=== PATIENT | male | born 1995 | race Caucasian/White ===

== ENCOUNTER 2022-09-15 21:22 | Emergency (ER) | payer BC ==
[2022-09-15 21:29] VITALS: BP 110/71; PULSE 78; RESP 16; TEMP 98; BMI 24.3
[2022-09-15] MEDS ORDERED: ACETAMINOPHEN 500 MG TABLET (FP) PO ONE (22:52)
[2022-09-15] MEDS ORDERED: ACETAMINOPHEN 325 MG TABLET (FP) ONE (23:09)
== END 2022-09-16 01:22 | disposition home or self-care (01) ==
LOC: JERFT 21:22 → JER 21:22
DX: S62.014A Nondisplaced fracture of distal pole of navicular [scaphoid] bone of right wrist, initial encounter for closed fracture (principal); W01.0XXA Fall on same level from slipping, tripping and stumbling without subsequent striking against object, initial encounter
CPT/HCPCS: 73110-TC-RT-FY; 73130-TC-RT-FY; 99283-25